=== PATIENT | female | born 1955 | race African-American/Black ===

== ENCOUNTER 2016-11-08 17:16 | Inpatient (IN) | payer SELFPAY ==
[~2016-11-08] VITALS: Ht 167.6 cm; Wt 104.3 kg
[2016-11-08] MEDS ORDERED: SODIUM CHLORIDE 0.9% 1,000 ML IV ONE (17:52)
[2016-11-08 18:29] LABS: BASOPHILS % 0.4 % (0.0-2.0); EOSINOPHILS % 0.9 % (0.0-5.0); LYMPHOCYTES % 26.8 % (20.0-50.0); MEAN CORPUSCULAR HEMOGLOBIN 17.2 pg (28.0-32.0); MEAN CORPUSCULAR HGB CONC 28.8 g/dL (31.0-37.0); MEAN CORPUSCULAR VOLUME 59.8 fL (81.0-99.0); MEAN PLATELET VOLUME 8.4 fl (7.4-10.4); MONOCYTES % 7.8 % (2.0-8.0); NEUTROPHILS % 64.1 % (40.0-76.0); PLATELET 290 x1000/uL (130-400); RED BLOOD CELL COUNT 3.32 mill/uL (4.2-5.4); RED CELL DISTRIBUTION WIDTH 19.6 % (11.6-14.6); WHITE BLOOD COUNT 8.7 x1000/uL (4.5-11.0)
[2016-11-08 18:31] LABS: DIFFERENTIAL COMMENT 1
[2016-11-08 18:35] LABS: ADD RBC MORPHOLOGY YES; HEMATOCRIT. 19.9 % (36.0-48.0); HEMOGLOBIN. 5.7 g/dL (12.0-16.0)
[2016-11-08 18:36] LABS: PROTHROMBIN TIME 10.8 sec
[2016-11-08 18:45] LABS: ALANINE AMINOTRANSFERASE 11 IU/L (13-61); ALBUMIN 3.5 g/dL (3.4-5.0); ANION GAP 12; CALCIUM 8.4 mg/dL (8.5-10.1); CARBON DIOXIDE 27 mEq/L (21-32); CHLORIDE 104 mEq/L (98-107); INDEX HEMOLYSI 1 (1-3); INDEX ICTERIC 1 (1-4); INDEX LIPEMIC 1 (1-3); NT PRO B-TYPE NATRIURETIC PEP 108 pg/mL (5-125); TROPONIN I < 0.02 ng/mL (0.00-0.04); UREA NITROGEN BLOOD 18 mg/dL (7-21); eGFR > 60 mL/min (>60)
[2016-11-08 18:59] LABS: PLATELET ESTIMATE NORMAL
[2016-11-08 19:01] LABS: ANISOCYTOSIS 2+
[2016-11-08 19:03] LABS: HYPOCHROMASIA 3+
[2016-11-08 20:35] LABS: CLARITY URINE CLEAR (CLEAR); COLOR URINE YELLOW (YELLOW); GLUCOSE URINE NEGATIVE (NEGATIVE); KETONES URINE NEGATIVE (NEGATIVE); LEUKOCYTE ESTERASE URINE NEGATIVE (NEGATIVE); NITRITE URINE NEGATIVE (NEGATIVE); OCCULT BLOOD URINE NEGATIVE (NEGATIVE); PH URINE 6.5 (4.5-8.0); PROTEIN URINE NEGATIVE (NEGATIVE); UROBILINOGEN URINE 0.2 E.U./dL (0.2-1.0)
[2016-11-09] VITALS (16 sets, daily range): BP systolic 110–161; BP diastolic 61–91
[2016-11-09 08:59] LABS: BASOPHILS % 0.3 % (0.0-2.0); EOSINOPHILS % 0.9 % (0.0-5.0); HEMATOCRIT. 24.8 % (36.0-48.0); HEMOGLOBIN. 7.7 g/dL (12.0-16.0); MEAN CORPUSCULAR HEMOGLOBIN 20.7 pg (28.0-32.0); MEAN CORPUSCULAR HGB CONC 31.3 g/dL (31.0-37.0); MEAN PLATELET VOLUME 8.9 fl (7.4-10.4); MONOCYTES % 8.1 % (2.0-8.0); NEUTROPHILS % 63.7 % (40.0-76.0); PLATELET 257 x1000/uL (130-400); RED BLOOD CELL COUNT 3.75 mill/uL (4.2-5.4); RED CELL DISTRIBUTION WIDTH 26.1 % (11.6-14.6)
[2016-11-09 09:00] LABS: DIFFERENTIAL COMMENT 1
[2016-11-09] MEDS ORDERED: PANTOPRAZOLE SODIUM 40 MG/VIAL IV SCH (09:00)
[2016-11-09 09:02] LABS: ADD RBC MORPHOLOGY NO
[2016-11-09 09:05] LABS: ANION GAP 9; CALCIUM 8.2 mg/dL (8.5-10.1); CARBON DIOXIDE 27 mEq/L (21-32); CHLORIDE 109 mEq/L (98-107); INDEX HEMOLYSI 1 (1-3); INDEX ICTERIC 1 (1-4); INDEX LIPEMIC 1 (1-3); IRON 98 ug/dL (50-175); TOTAL IRON BINDING CAPACITY 438 ug/dL (250-450); UREA NITROGEN BLOOD 16 mg/dL (7-21); eGFR > 60 mL/min (>60)
[2016-11-09] MEDS: SODIUM CHLORIDE 0.9% 1,000 ML IV SCH ×2 (09:28→14:27)
[2016-11-09] MEDS ORDERED: TRIA1CAP6 PO (11:04)
[2016-11-09] MEDS ORDERED: QUIN20TA30 PO (11:04)
[2016-11-09] MEDS ORDERED: ACETAMINOPHEN 650MG SUPP PR PRN (12:00)
[2016-11-09] MEDS ORDERED: HYDRALAZINE 20MG/ML VIAL IV PRN (12:00)
[2016-11-09] MEDS: KETOROLAC 30MG/ML VIAL IV PRN (12:24)
[2016-11-09] MEDS ORDERED: POTASSIUM CHLORIDE INJ 40 MEQ in DEXT 5% WATER 250 ML IV NR (12:30)
[2016-11-09 15:03] LABS: FERRITIN < 5 ng/mL (10-291)
[2016-11-09] MEDS ORDERED: SIMETHICONE 40 MG/0.6 ML 30ML ONE (16:16)
[2016-11-09] MEDS ORDERED: FENTANYL CITRATE/PF 50MCG/ML 2ML VIAL ONE (16:16)
[2016-11-09] MEDS ORDERED: MIDAZOLAM HCL 5 MG/5 ML VIAL ONE (16:17)
[2016-11-09] MEDS ORDERED: FENTANYL CITRATE/PF 50MCG/ML 2ML VIAL IV PRN (16:25)
[2016-11-09] MEDS ORDERED: MIDAZOLAM HCL 5 MG/5 ML VIAL IV PRN (16:25)
[2016-11-09] MEDS: PANTOPRAZOLE SODIUM 40 MG/VIAL IV SCH (18:43)
[2016-11-09 23:59] LABS: HEMATOCRIT 27.5 % (36.0-48.0); HEMOGLOBIN 8.8 g/dL (12.0-16.0)
[2016-11-10] VITALS (10 sets, daily range): BP systolic 130–180; BP diastolic 63–91
[2016-11-10] MEDS: KETOROLAC 30MG/ML VIAL IV PRN ×2 (00:36→14:02)
[2016-11-10 06:24] LABS: HEMATOCRIT 25.3 % (36.0-48.0)
[2016-11-10] MEDS: SODIUM CHLORIDE 0.9% 1,000 ML IV SCH (06:34)
[2016-11-10] MEDS: PANTOPRAZOLE SODIUM 40 MG/VIAL IV SCH (08:54)
[2016-11-10 09:07] LABS: CHLORIDE 112 mEq/L (98-107); INDEX HEMOLYSI 1 (1-3); INDEX ICTERIC 1 (1-4); INDEX LIPEMIC 1 (1-3)
[2016-11-10 09:12] LABS: ANION GAP 11; CALCIUM 7.9 mg/dL (8.5-10.1); CARBON DIOXIDE 25 mEq/L (21-32); UREA NITROGEN BLOOD 18 mg/dL (7-21); eGFR > 60 mL/min (>60)
[2016-11-10] MEDS ORDERED: LISINOPRIL 20MG TABLET PO SCH (13:00)
[2016-11-10] MEDS ORDERED: QUINAPRIL HCL 20 MG PO SCH (13:00)
[2016-11-10] MEDS ORDERED: TRIAMTERENE/HYDROCHLOROTHIAZIDE 37.5/25MG CAPSULE PO SCH (13:00)
[2016-11-10] MEDS ORDERED: SODIUM CHLORIDE 0.9% 10ML VIAL ONE (13:14)
[2016-11-10] MEDS ORDERED: SIMETHICONE 40 MG/0.6 ML 30ML ONE (13:14)
[2016-11-10 17:16] LABS: HEMATOCRIT 32.6 % (36.0-48.0); HEMOGLOBIN 9.9 g/dL (12.0-16.0)
== END 2016-11-10 18:55 | disposition home or self-care (01) | DRG 254 ==
LOC: ER 20:09 → 5WST 22:52
PROVIDERS: ADMIT Hospitalist; ATTEND Hospitalist
PROC: 0DB68ZX Excision of Stomach, Via Natural or Artificial Opening Endoscopic, Diagnostic (ICD-10-PCS; 2016-11-09)
PROC: 30233N1 Transfusion of Nonautologous Red Blood Cells into Peripheral Vein, Percutaneous Approach (ICD-10-PCS; principal; 2016-11-09 16:00)
DX: D49.0 Neoplasm of unspecified behavior of digestive system (principal); D62 Acute posthemorrhagic anemia; K25.9 Gastric ulcer, unspecified as acute or chronic, without hemorrhage or perforation; E66.01 Morbid (severe) obesity due to excess calories; K92.2 Gastrointestinal hemorrhage, unspecified; I10 Essential (primary) hypertension; K64.9 Unspecified hemorrhoids; K92.89 Other specified diseases of the digestive system; K21.9 Gastro-esophageal reflux disease without esophagitis; Z68.37 Body mass index [BMI] 37.0-37.9, adult; Z79.82 Long term (current) use of aspirin
CPT/HCPCS: 36415; 71010; 80048; 80053; 81003; 82270; 82378; 82607; 82728; 82746; 83540; 83550; 83880; 84484; 85014; 85018; 85025; 85610; 86850; 86900; 86920; 88305; 88312; 93005; 96360; 99291; A4216; C9113; J0360; J1885; J2250; J3010; J3480; J7030; J7040; J7050; J7060; P9016